=== PATIENT | male | born 1930 | race Caucasian/White ===

== ENCOUNTER 2019-06-12 09:09 | Emergency (ER) | payer OTHER ==
[~2019-06-12] VITALS: Ht 160 cm; Wt 60.8 kg
[~2019-06-12 09:09] MED LIST: ASPIR 8181 MG; ISOSORBIDE DINI30 MG; LIPITOR20 MG; PLAVIX75 MG
== END 2019-06-12 12:16 | disposition home or self-care (01) ==
LOC: ER 09:09
DX: B34.9 Viral infection, unspecified (principal); J09.X2 Influenza due to identified novel influenza A virus with other respiratory manifestations